=== PATIENT | female | born 1980 ===

== ENCOUNTER 2018-08-16 13:23 | Emergency (ER) | payer OTHER ==
[2018-08-16 14:08] VITALS: BMI 32.4
--- NOTE | 2018-08-16 14:28 | PDOC ---
History of Present Illness <Pepe Valdes - Last Filed: 08/16/18 18:22> - General History Source: Patient Exam Limitations: No Limitations - History of Present Illness Initial Comments: 08/16/18 14:56 38 year old female with H bariatric surgery (2017) presented to ED for diarrhea x3 days. She stated her diarrhea started when she ate thanksgiving meal , eggs, spinach withc cheese, and since then she has had 5 episodes of diarrhea a day, loose and brown and watery, she denied blood. She admitted to constant LUQ and epigastric pain, nonradiating, no aggravating or alleviating factors. She admitted to nausea, headache and subjective fever. She denied vomiting, chest pain, shortness of breath, sore throat, runny nose, body aches. <ChiragIliana - Last Filed: 08/16/18 18:32> - General Chief Complaint: Pain Stated Complaint: ABD PAIN Time Seen by Provider: 08/16/18 14:28 Past History <Pepe Valdes - Last Filed: 08/16/18 18:22> - Past Medical History COPD: No CHF: No - Surgical History Abdominal Surgery: Yes (bariatric bypass sx) - Suicide/Smoking/Psychosocial Hx Smoking History: Never smoked Have you smoked in the past 12 months: No Information on smoking cessation initiated: No Hx Alcohol Use: No Drug/Substance Use Hx: No Substance Use Type: None <Iliana Beard - Last Filed: 08/16/18 18:32> - Past Medical History Allergies/Adverse Reactions: Allergies Allergy/AdvReac Type Severity Reaction Status Date / Time No Known Allergies Allergy Verified 08/16/18 13:58 Home Medications: Ambulatory Orders Unobtainable 08/16/18 Review of Systems - Review of Systems Able to Perform ROS?: Yes Comments:: 08/16/18 14:58 General: admitted to chills and generalized weakness. denied fever. HEENT: denied sore throat, rhinorrhea, ear pain. Heart: denied chest pain, palpitations, syncope, lower extremity swelling, diaphoresis. Respiratory: denied shortness of breath, cough, sputum production, hemoptysis. Abdomen: admitted to nausea, abdominal pain, diarrhea. denied vomiting, constipation, blood in stool, hematemesis. : denied dysuria, increased urinary frequency, hematuria, urinary incontinence , flank pain, vaginal bleeding, vaginal discharge, pelvic pain. Back: denied back pain. Musculoskeletal: denied joint pain, muscle pain, joint swelling. Neurological: admitted to headache. denied dizziness, numbness, tingling, weakness. Skin: denied rash, laceration, abrasion. <Iliana Beard - Last Filed: 08/16/18 18:32> *Physical Exam - Vital Signs Last Vital Signs Temp Pulse Resp BP Pulse Ox 98.5 F 70 16 102/76 100 08/16/18 13:25 08/16/18 13:25 08/16/18 13:25 08/16/18 13:25 08/16/18 13:25 <Pepe Valdes - Last Filed: 08/16/18 18:22> - Vital Signs Last Vital Signs Temp Pulse Resp BP Pulse Ox 98.5 F 70 16 102/76 100 08/16/18 13:25 08/16/18 13:25 08/16/18 13:25 08/16/18 13:25 08/16/18 13:25 - Physical Exam Comments: 08/16/18 14:59 Constitutional: Well-nourished, Well-developed, appearing stated age. HEENT: head is normocephalic, atraumatic. EOMI. PERRLA. dry mucous membranes. Neck: supple. Full ROM. Heart: regular rhythm. no murmurs, rubs or gallops. Lungs: clear to auscultation bilaterally. no crackles, rhonchi or wheezing. no stridor. Abdomen: soft. Tenderness to palpation of LUQ and epigastrium. increased bowel sounds. no rebound, guarding, masses. murphys sign negative. mcburneys point nontender. Extremities: Peripheral pulses intact. No lower extremity edema. Neurological: CN 2-12 grossly intact. Moves all four extremities. Psych: awake, alert, oriented x3. Follows commands. Answers questions appropriately. <Iliana Beard - Last Filed: 08/16/18 18:32> ED Treatment Course - LABORATORY CBC & Chemistry Diagram: 08/16/18 15:49 08/16/18 15:49 - ADDITIONAL ORDERS Additional order review: Laboratory Results 08/16/18 08/16/18 15:49 15:49 Sodium 140 Potassium 3.6 Chloride 106 Carbon Dioxide 23 Anion Gap 10 BUN 7 Creatinine 0.6 Creat Clearance w eGFR > 60 Random Glucose 71 L Calcium 8.6 Total Bilirubin 0.3 AST 15 ALT 13 Alkaline Phosphatase 65 Total Protein 7.1 Albumin 3.4 Lipase 111 Urine Color Lissette Urine Appearance Slcloudy Urine pH 5.0 Ur Specific Hardy 1.026 Urine Protein Negative Urine Glucose (UA) Negative Urine Ketones 1+ H Urine Blood Negative Urine Nitrite Negative Urine Bilirubin Negative Urine Urobilinogen 4.0 e.u/dl H Ur Leukocyte Esterase Negative Urine HCG, Qual Negative 08/16/18 15:49 RBC 4.26 MCV 82.6 MCHC 34.0 RDW 14.8 MPV 8.9 Neutrophils % 47.2 Lymphocytes % 36.5 Monocytes % 13.6 H Eosinophils % 1.4 Basophils % 1.3 - Medications Given in the ED: ED Medications Discontinued Medications Generic Name Dose Route Start Last Admin Trade Name Dominic PRN Reason Stop Dose Admin Acetaminophen 1,000 mg 08/16/18 15:01 08/16/18 15:59 Ofirmev Injection - IVPB 08/16/18 15:02 1,000 mg ONCE ONE Administration Al Hydroxide/Mg Hydroxide 30 ml 08/16/18 15:02 08/16/18 15:59 Mylanta Oral Suspension - PO 08/16/18 15:03 30 ml ONCE ONE Administration Famotidine/Sodium Chloride 20 mg in 50 mls @ 100 mls/hr 08/16/18 15:01 15:59 Pepcid 20 Mg Premixed Ivpb - IVPB 08/16/18 15:30 100 mls/hr ONCE ONE Administration Sodium Chloride 1,000 mls @ 1,000 mls/hr 08/16/18 15:01 08/16/18 15:59 Normal Saline - IV 08/16/18 16:00 1,000 mls/hr ASDIR STA Administration Ondansetron HCl 4 mg 08/16/18 15:01 08/16/18 15:59 Zofran Injection IVPUSH 08/16/18 15:02 4 mg ONCE ONE Administration <Pepe Valdes - Last Filed: 08/16/18 18:22> - LABORATORY CBC & Chemistry Diagram: 08/16/18 15:49 08/16/18 15:49 <Iliana Beard - Last Filed: 08/16/18 18:32> Medical Decision Making - Medical Decision Making 08/16/18 15:10 38 year old female with PMH bariatric surgery (2017) presented to ED for diarrhea, subjective fever, LUQ/epigastric pain x3 days. Initial Vital Signs Temp Pulse Resp BP Pulse Ox 98.5 F 70 16 102/76 100 08/16/18 13:25 08/16/18 13:25 08/16/18 13:25 08/16/18 13:25 08/16/18 13:25 Afebrile. No tachycardia. No tachypnea. Hypotensive. No hypoxia on room air. Zofran ordered for nausea. Pepcid and Maalox ordered for epigastric pain. 1000 cc bolus normal saline ordered for dehydration. Tylenol ordered for pain. Pending CBC, CMP, lipase, UA/UC, urine test. 08/16/18 15:55 Pt had RUQ tenderness on examination for Dr. Valdes. RUQ ultrasound ordered. 08/16/18 17:14 CBC WBC 2.8 K/mm3 (4.0-10.0) L 08/16/18 15:49 RBC 4.26 M/mm3 (3.60-5.2) 08/16/18 15:49 Hgb 12.0 GM/dL (10.7-15.3) 08/16/18 15:49 Hct 35.2 % (32.4-45.2) 08/16/18 15:49 MCV 82.6 fl (80-96) 08/16/18 15:49 MCH 28.1 pg (25.7-33.7) 08/16/18 15:49 MCHC 34.0 g/dl (32.0-36.0) 08/16/18 15:49 RDW 14.8 % (11.6-15.6) 08/16/18 15:49 Plt Count 186 K/MM3 (134-434) 08/16/18 15:49 MPV 8.9 fl (7.5-11.1) 08/16/18 15:49 Absolute Neuts (auto) 1.3 K/mm3 (1.5-8.0) L 08/16/18 15:49 Neutrophils % 47.2 % (42.8-82.8) 08/16/18 15:49 Lymphocytes % 36.5 % (8-40) 08/16/18 15:49 Monocytes % 13.6 % (3.8-10.2) H 08/16/18 15:49 Eosinophils % 1.4 % (0-4.5) 08/16/18 15:49 Basophils % 1.3 % (0-2.0) 08/16/18 15:49 Nucleated RBC % 0 % (0-0) 08/16/18 15:49 No leukocytosis. No anemia. CMP Sodium 140 mmol/L (136-145) 08/16/18 15:49 Potassium 3.6 mmol/L (3.5-5.1) 08/16/18 15:49 Chloride 106 mmol/L (98-107) 08/16/18 15:49 Carbon Dioxide 23 mmol/L (21-32) 08/16/18 15:49 Anion Gap 10 MMOL/L (8-16) 08/16/18 15:49 BUN 7 mg/dL (7-18) 08/16/18 15:49 Creatinine 0.6 mg/dL (0.55-1.3) 08/16/18 15:49 Creat Clearance w eGFR > 60 (>60) 08/16/18 15:49 Random Glucose 71 mg/dL (74-106) L 08/16/18 15:49 Calcium 8.6 mg/dL (8.5-10.1) 08/16/18 15:49 Total Bilirubin 0.3 mg/dL (0.2-1) 08/16/18 15:49 AST 15 U/L (15-37) 08/16/18 15:49 ALT 13 U/L (13-61) 08/16/18 15:49 Alkaline Phosphatase 65 U/L (45-117) 08/16/18 15:49 Total Protein 7.1 g/dl (6.4-8.2) 08/16/18 15:49 Albumin 3.4 g/dl (3.4-5.0) 08/16/18 15:49 Lipase 111 U/L (73-393) 08/16/18 15:49 No electrolyte abnormalities. No FARHENE. No LFT abnormalities. Normal lipase. Urine Test Results Urine Color Lissette 08/16/18 15:49 Urine Appearance Slcloudy 08/16/18 15:49 Urine pH 5.0 (5.0-8.0) 08/16/18 15:49 Ur Specific Hardy 1.026 (1.010-1.035) 08/16/18 15:49 Urine Protein Negative (NEGATIVE) 08/16/18 15:49 Urine Glucose (UA) Negative (NEGATIVE) 08/16/18 15:49 Urine Ketones 1+ (NEGATIVE) H 08/16/18 15:49 Urine Blood Negative (NEGATIVE) 08/16/18 15:49 Urine Nitrite Negative (NEGATIVE) 08/16/18 15:49 Urine Bilirubin Negative (<2.0 mg/dL) 08/16/18 15:49 Ur Leukocyte Esterase Negative (NEGATIVE) 08/16/18 15:49 08/16/18 18:13 Pt reassessed, reported feeling well. Abdomen soft and nontender to palpation. No guarding. No rebound. Pt watching cartoons. 08/16/18 18:28 RUQ US report: 3 mm GB polyp. hyperechoic 5.7 c, finding in the dome of the liver, likely cavernous hemangioma. no gall stones. no GB wall thickening. Pt to be discharged. <Iliana Beard - Last Filed: 08/16/18 18:32> *DC/Admit/Observation/Transfer <Pepe Valdes - Last Filed: 08/16/18 18:22> - Discharge Dispostion Decision to Admit order: No <Iliana Beard - Last Filed: 08/16/18 18:32> Diagnosis at time of Disposition: Diarrhea - Discharge Dispostion Disposition: HOME Condition at time of disposition: Stable - Referrals Referrals: Martha Mtz MD [Primary Care Provider] - - Patient Instructions Printed Discharge Instructions: DI for Diarrhea and Traveler's Diarrhea -- Adult Additional Instructions: Your bloodwork showed that your white blood cell count was low today. This may be a result of a viral infection. You must have this number re-checked by your primary doctor within 1-2 weeks. Your ultrasound showed something called a hemangioma in your liver. This is usually harmless, but sometimes they can cause discomfort. Follow up with your primary doctor regarding this finding. I have printed out a copy of the ultrasound report, bring this to your primary care doctor. If you experience worsening abdominal pain, abdominal bloating, vomiting, fevers , or any other concerning symptoms, return to the ER immediately. - Post Discharge Activity
[2018-08-16] MEDS ORDERED: FAMOTIDINE 20 MG/50 ML IVPB 20 MG/50 ML MG IVPB ONE ×2 (15:01→15:46)
[2018-08-16] MEDS ORDERED: ACETAMINOPHEN 1000 MG/100 ML VIAL (NON FORMULARY) IVPB ONE (15:01)
[2018-08-16] MEDS ORDERED: SODIUM CHLORIDE 1,000 ML IV STA (15:01)
[2018-08-16] MEDS ORDERED: ONDANSETRON 4 MG/2 ML VIAL IVPUSH ONE (15:01)
[2018-08-16] MEDS ORDERED: MAG HYDROX/AL HYDROX/SIMETH 30 ML UNIT-DOSE CUP PO ONE (15:02)
[2018-08-16] MEDS ORDERED: ONDANSETRON 4 MG/2 ML VIAL ONE (15:46)
[2018-08-16] MEDS ORDERED: MAG HYDROX/AL HYDROX/SIMETH 30 ML UNIT-DOSE CUP ONE ×2 (15:46→15:47)
[2018-08-16] MEDS ORDERED: ACETAMINOPHEN INJECTION 100 ML IVPB ONE (15:46)
--- NOTE | 2018-08-16 15:54 | PDOC ---
Attending Attestation - Resident Resident Name: Iliana Beard - ED Attending Attestation I have performed the following: I have examined & evaluated the patient, The case was reviewed & discussed with the resident, I agree w/resident's findings & plan, Exceptions are as noted - HPI HPI: 08/16/18 15:49 The patient is a 38-year-old female with past medical history significant for bariatric surgery (1 year ago) presents to the emergency department with epigastric pain and diarrhea. The patient presents with daily episodes of non- bloody, non-melanotic watery brown diarrhea, thats been ongoing for the past 2 days. The patient reports her symptoms started immediately after Thanksgiving dinner. Allergies: NKA Social history: No past or present use of tobacco, alcohol or recreational drug. Surgical history: Bariatric Surgery. PCP: Martha Kirk MD - Physicial Exam PE: 08/16/18 15:54 "GENERAL: Awake, alert, and fully oriented, in no acute distress. HEAD: No signs of trauma EYES: PERRLA, EOMI, sclera anicteric, conjunctiva clear ENT: Auricles normal inspection, hearing grossly normal, nares patent, oropharynx clear without exudates. Moist mucosa NECK: Nontender, no stepoffs, Normal ROM, supple, no lymphadenopathy, JVD, or masses LUNGS: Breath sounds equal, clear to auscultation bilaterally. No wheezes, and no crackles HEART: Regular rate and rhythm, normal S1 and S2, no murmurs, rubs or gallops ABDOMEN: + epigastric and LUQ tenderness, normoactive bowel sounds. No guarding , no rebound. No masses EXTREMITIES: Normal range of motion, no edema. No clubbing or cyanosis. No cords, erythema, or tenderness NEUROLOGICAL: Cranial nerves II through XII intact. 5/5 strength and sensation in all extremities, Normal speech, normal gait, normal cerebellar function SKIN: Warm, Dry, normal turgor, no rashes or lesions noted. - Medical Decision Making 08/16/18 15:54 38 F with diarrhea and epigastric pain x 2 days. Likely gastroenteritis. Pt with no lower abodminal tenderness to suggest colitis or appendicitis. Will evaluate gallbladder. No distention or vomiting to suggest SBO. - Labs - US RUQ - GI cocktail 11/24/18 18:21 Labs notable for mild neutropenia, otherwise normal US negative for gallstones or acute pool Pt reassessed - feels significantly better after GI cocktail. Pt is well appearing, with normal vitals. Clinically stable for DC at this time. I discussed the physical exam findings, ancillary test results and final diagnoses with the patient. I answered all of the patient's questions. The patient was satisfied with the care received and felt comfortable with the discharge plan and treatment plan. The patient agrees to follow up with the primary care physician within 24-72 hours.
[2018-08-16 16:23] LABS: BASO % 1.3 % (0-2.0); EOS % 1.4 % (0-4.5); HEMATOCRIT 35.2 % (32.4-45.2); LYMPH % 36.5 % (8-40); MCH 28.1 pg (25.7-33.7); MEAN CELL VOLUME 82.6 fl (80-96); MEAN PLT VOLUME 8.9 fl (7.5-11.1); MONO % 13.6 % (3.8-10.2); NEUT % 47.2 % (42.8-82.8); PLATELET COUNT 186 K/MM3 (134-434); RBC 4.26 M/mm3 (3.60-5.2); RDW 14.8 % (11.6-15.6); WHITE BLOOD COUNT 2.8 K/mm3 (4.0-10.0)
[2018-08-16 16:33] LABS: URINE APPEARANCE SLCLOUDY; URINE BILIRUBIN NEGATIVE (<2.0 mg/dL); URINE COLOR AMBER; URINE GLUCOSE (UA) NEGATIVE (NEGATIVE); URINE KETONE 1+ (NEGATIVE); URINE LEUK ESTERASE NEGATIVE (NEGATIVE); URINE NITRITE NEGATIVE (NEGATIVE); URINE PROTEIN NEGATIVE (NEGATIVE); URINE UROBILINOGEN 4.0 E.U/dl mg/dL (0.2-1.0)
[2018-08-16 16:52] LABS: HCG,QUALITATIVE URINE Negative
[2018-08-16 17:07] LABS: ALBUMIN 3.4 g/dl (3.4-5.0); ALK PHOS 65 U/L (45-117); ANION GAP 10 MMOL/L (8-16); BILIRUBIN,TOTAL 0.3 mg/dL (0.2-1); BLOOD UREA NITROGEN 7 mg/dL (7-18); CALCIUM 8.6 mg/dL (8.5-10.1); CHLORIDE 106 mmol/L (98-107); CO2 23 mmol/L (21-32); CREATININE 0.6 mg/dL (0.55-1.3); GLUCOSE,RANDOM 71 mg/dL (74-106); LIPASE 111 U/L (73-393); POTASSIUM 3.6 mmol/L (3.5-5.1); SGOT/AST 15 U/L (15-37); SGPT/ALT 13 U/L (13-61); SODIUM 140 mmol/L (136-145); TOT PROT 7.1 g/dl (6.4-8.2)
[2018-08-16 17:22] LABS: ANISOCYTOSIS 1+; MACROCYTOSIS 1+; PLATELET ESTIMATE ADEQUATE
[2018-08-16 18:44] VITALS: BP 109/71; PULSE 84; TEMP 98.3
== END 2018-08-16 18:44 | disposition home or self-care (01) ==
LOC: JER 13:23
PROC: 3E033GC Introduction of Other Therapeutic Substance into Peripheral Vein, Percutaneous Approach (ICD-10-PCS; principal; 2018-08-16)
PROC: 3E033GC Introduction of Other Therapeutic Substance into Peripheral Vein, Percutaneous Approach (ICD-10-PCS; 2018-08-16)
PROC: 3E033NZ Introduction of Analgesics, Hypnotics, Sedatives into Peripheral Vein, Percutaneous Approach (ICD-10-PCS; 2018-08-16)
DX: R19.7 Diarrhea, unspecified (principal); Z98.84 Bariatric surgery status
CPT/HCPCS: 36415; 76700-TC; 80053; 81003; 83690; 84703; 85025; 87086; 96365; 96375; 99282-25; J0131; J7030